=== PATIENT | female | born 1960 | race Caucasian/White ===

== ENCOUNTER 2016-07-11 09:46 | Emergency (ER) | payer OTHER ==
[2016-07-11 09:56] VITALS: BP 169/88; RESP 18; TEMP 97.9
[2016-07-11] MEDS ORDERED: IPRATROPIUM/ALBUTEROL 3 ML DEYVIAL IH ONE (10:49)
--- NOTE | 2016-07-11 10:54 | UCPHY ---
H & P Time Seen by Provider: 07/11/16 10:04 Patient Type: Established HPI/ROS: This patient complains of a cough and some dyspnea. She explains that she visit a family member at [facility] in [place] and she felt like she smelled something funny in the air just outside and then had onset of throat constriction wheeze. She thinks she may have an allergic reaction that triggered her sense of tightness and wheeze. She also admits that she is grieving a sick family member currently. She reports that her sense of dyspnea is mild but she also has some wheezing that is uncommon for her. She notes no exacerbating or alleviating factors. ROS: No fevers. No other constitutional symptoms. HEENT: Mild coryza. No other complaints. Pulmonary: No pleuritic pain. No respiratory distress. No significant coughing. Cardiovascular: No leg swelling or calf pain. No lightheadedness. GI: No complaints. 7 point ROS is otherwise negative. Past Medical/Surgical History: Hypertension. Smoking Status: Never smoked Physical Exam: General Appearance: Alert, no distress. Eyes: Pupils equal and round no pallor or injection. ENT, Mouth: Mucous membranes moist. Nose: Mild clear discharge. No sinus tenderness to percussion. Oropharynx: No erythema exudates or dysphonia. No stridor. Respiratory: Clear to auscultation bilaterally. No rales or rhonchi. With cough she has faint expiratory wheeze. Cardiovascular: Regular rate and rhythm. No murmur gallop rub. No JVD. No peripheral edema. Gastrointestinal: Abdomen is soft and nontender, no masses, bowel sounds normal. Neurological: Alert with no focal deficits. Skin: Warm and dry, no rashes. Musculoskeletal: Neck is supple nontender. Psychiatric: Mood and affect are normal DIFFERENTIAL DIAGNOSIS: After history and physical exam differential diagnosis was considered for RAD, seasonal allergies, anxiety, viral illness Constitutional: Initial Vital Signs Temperature (C) 36.6 C 07/11/16 09:52 Heart Rate 75 07/11/16 09:52 Respiratory Rate 18 07/11/16 09:52 Blood Pressure 169/88 H 07/11/16 09:52 O2 Sat (%) 95 07/11/16 09:52 O2 Delivery Mode Nasal Cannula Allergies/Adverse Reactions: No Known Allergies Allergy (Verified 07/11/16 09:51) Home Medications: Medication Instructions Recorded Hydrochlorothiazide 10/10/13 Albuterol Hfa Anes Only [Proair 2 puffs IH Q4 PRN #1 mdi 07/11/16 Hfa Icu (*)] Fluticasone Hfa 220 Mcg [Flovent 2 puffs IH DAILY #1 mdi 07/11/16 220 MCG Hfa MDI (*)] MDM/Departure - MDM Medications Given: Discontinued Medications Albuterol/Ipratropium (Duoneb) 3 ml IH EDNOW ONE Stop: 07/11/16 10:50 Last Admin: 07/11/16 11:10 Dose: 3 ml ED Course/Re-evaluation: Patient's peak flows low and she improved with a DuoNeb. We counseled her regarding reactive airway disease. She will start Flovent and albuterol. No clinical evidence of lower respiratory infection, respiratory distress or other concerning findings. - Depart Disposition: Home, Routine, Self-Care Clinical Impression: Wheeze Condition: Good Instructions: Wheezing (ED) Additional Instructions: Diagnosis: Wheezing Plan: Humidifier Albuterol inhaler with spacer for cough, wheeze or shortness of breath Flovent steroid inhaler-uses for 10-14 days Follow up with Dr. Mcghee for any ongoing symptoms despite the treatment plan Prescriptions: Albuterol Hfa Anes Only [Proair Hfa Icu (*)] 2 puffs IH Q4 PRN #1 mdi PRN Reason: Wheezing Fluticasone Hfa 220 Mcg [Flovent 220 MCG Hfa MDI (*)] 2 puffs IH DAILY #1 mdi Referrals: Janet Mcghee MD [Primary Care Provider] - As per Instructions - PQRS PQRS Measurement: NA
[2016-07-11 11:30] VITALS: PULSE 82; O2SAT 94
== END 2016-07-11 11:30 | disposition home or self-care (01) ==
LOC: CED 09:46
DX: R06.2 Wheezing (principal); I10 Essential (primary) hypertension
CPT/HCPCS: 99214-PO; G0463-PO

== ENCOUNTER → 2016-07-18 | Outpatient (CLI) | payer OTHER | LOC: CIMAGING 16:20 | PROVIDERS: ATTEND Family Medicine | DX: M19.041 Primary osteoarthritis, right hand (principal) | CPT/HCPCS: 73130-PO ==

== ENCOUNTER → 2017-11-16 | Outpatient (CLI) | payer OTHER | LOC: CIMAGING 10:58 | PROVIDERS: ATTEND Family Medicine | DX: R42 Dizziness and giddiness (principal); R51 Headache; S09.90XA Unspecified injury of head, initial encounter | CPT/HCPCS: 70450-PO ==